=== PATIENT | male | born 1965 | race Caucasian/White ===

== ENCOUNTER 2020-08-03 08:04 | Observation (INO) | payer BC ==
[~2020-08-03] VITALS: Ht 177.8 cm; Wt 77.0 kg
[2020-08-03] VITALS (352 sets, daily range): BP systolic 103–177; BP diastolic 72–90; PULSE 75–98; TEMP 97.4–98.6; O2SAT 93–100
[2020-08-03] MEDS ORDERED: CENTRUM MEN'S PO (08:26)
[2020-08-03] MEDS ORDERED: PLAVIX 75MG TAB75 MG PO (08:27)
[2020-08-03] MEDS ORDERED: DOLOPHINE HCL5 MG PO (08:28)
[2020-08-03] MEDS ORDERED: CYMBALTA 30MG30 MG PO (08:29)
[2020-08-03] MEDS ORDERED: PROTONIX 40MG T40 MG PO (08:29)
[2020-08-03] MEDS ORDERED: ASPIRIN E.C. 8181 MG PO (08:30)
[2020-08-03] MEDS ORDERED: LOPRESSOR 225 MG/TAB PO (08:30)
[2020-08-03 09:15] LABS: HEMATOCRIT 39.5 % (42.0-52.0); HEMOGLOBIN 14.2 g/dl (13.5-18.0); MEAN CELL VOLUME 89 fl (80.0-100.0); MEAN CORPUSCULAR HEMOGLOBIN 32 pg (27.0-31.0); MEAN CORPUSCULAR HGB CONC 36 g/dl (33.0-37.0); MEAN PLATELET VOLUME 8.6 fl (7.4-10.4); PLATELET COUNT 214 K/mm3 (130-400); RED BLOOD COUNT 4.46 M/mm3 (4.20-5.60); REDCELL DISTRIBUTION WIDTH-CV 12.8 % (11.5-14.5)
[2020-08-03 09:19] LABS: INR 1.1 (0.8-3.0); PROTHROMBIN TIME 12.7 SECONDS (9.7-12.8)
[2020-08-03 09:22] LABS: PARTIAL THROMBOPLASTIN TIME 27.3 SECONDS (26.0-37.0)
[2020-08-03 09:25] LABS: CALCIUM 9.4 mg/dL (8.4-10.2); CREATININE, serum 0.6 (0.66-1.25); POTASSIUM 4.2 mmol/L (3.4-5.0)
--- NOTE | 2020-08-03 12:00 | NUR ---
Report reveived from RENETTA Gale.
--- NOTE | 2020-08-03 12:20 | NUR ---
Arrived to the unit via stretcher. Patient alert and oriented. Denies any shortness of breath or chest pain. Radial site clean, dry and intact with scant bloody drainage. Call light left within reach. Will continue to monitor.
[2020-08-03] MEDS ORDERED: NOVOLOG 100U100 U/M1 (12:35)
[2020-08-03] MEDS ORDERED: LEVEMIR100 U/ML SQ (12:35)
[2020-08-03] MEDS ORDERED: NOVOLOG 100U100 U/M1 SQ (12:37)
--- NOTE | 2020-08-03 16:30 | NUR ---
Received telephone orders to re-start home Levemir dose and sliding scale novolog. Patient also reporting 8/10 back pain. Pain is chronic in nature. Patient reports that tylenol, norco and oxycodone do not help and "upset" his stomach. Received one time order for IV fentanyl.
--- NOTE | 2020-08-03 19:21 | NUR ---
Report given to RENETTA Palomino. Patient care transfered.
--- NOTE | 2020-08-03 20:09 | NUR ---
Right forearm from elbow distally tender upon palpation, this is unchanged per pt since end of procedure
[2020-08-04] VITALS (314 sets, daily range): BP systolic 122–166; BP diastolic 74–115; PULSE 78–94; TEMP 97.9–98.4; O2SAT 94–100
[2020-08-04 05:31] LABS: BASO % 0.5 % (0.0-2.0); EOS # 0.1 (0.0-0.7); EOS % 0.9 % (0-4.0); GRAN # 5.6 (1.4-6.5); GRAN % 69.8 % (42.2-75.2); HEMATOCRIT 37.2 % (42.0-52.0); HEMOGLOBIN 13.6 g/dl (13.5-18.0); LYMPH # 1.6 (1.2-3.4); LYMPH % 19.5 % (20.0-51.0); MEAN CELL VOLUME 88 fl (80.0-100.0); MEAN CORPUSCULAR HEMOGLOBIN 32 pg (27.0-31.0); MEAN CORPUSCULAR HGB CONC 37 g/dl (33.0-37.0); MEAN PLATELET VOLUME 8.8 fl (7.4-10.4); MONO # 0.7 (0.1-0.6); MONO % 8.9 % (1.7-9.3); PLATELET COUNT 207 K/mm3 (130-400); RED BLOOD COUNT 4.25 M/mm3 (4.20-5.60); REDCELL DISTRIBUTION WIDTH-CV 12.6 % (11.5-14.5)
[2020-08-04 05:43] LABS: CALCIUM 8.9 mg/dL (8.4-10.2); CREATININE, serum 0.63 (0.66-1.25)
--- NOTE | 2020-08-04 08:46 | NUR ---
This am during bedside report patient stated, "I do not feel right, I bet my blood sugar is 400". PT blood sugar was about 227, novolog given based on sliding scale. AT this time patient's heart rate quickly fluctuates between 80s-100s appears to still be sinus rhythm. PTs blood pressure is a little elevated but decreases with next check. PT is given morning medications, breakfast arrives, this rn hands patient his call light and patient begins to eat. 0800- PT calls stating he is sweaty and feels like he may throw up. PT has 125cc emesis. Whole pills are noted in emesis. PT continues to dry heave. Zofran given as ordered. Dr. Bernard notified.
--- NOTE | 2020-08-04 11:56 | NUR ---
First visit from the nutrition worker. No needs right now.
--- NOTE | 2020-08-04 16:06 | NUR ---
PT TRANSFERRED UP STAIRS VIA WHEELCHAIR TO ROOM 351. Jamila RN to assume care at this time.
--- NOTE | 2020-08-04 18:16 | NUR ---
Patient currently resting in bed. Patient is alert and oriented, denies pain. Patient did eat dinner, reports he is feeling a small amount of nausea, no emesis as of yet. Administered PRN antiemetic per patient request. Patient denies further needs, call light within reach.
[2020-08-05 00:15] VITALS: BP 123/70; PULSE 87; TEMP 98
[2020-08-05 01:06] VITALS: BP 123/70; PULSE 87; TEMP 98
[2020-08-05 04:07] VITALS: BP 116/70; PULSE 86; TEMP 97.9
[2020-08-05 04:14] VITALS: BP 116/70; PULSE 86; TEMP 97.9
--- NOTE | 2020-08-05 04:26 | NUR ---
PATIENT CALM AND COOPERATIVE THROUGHOUT THE NIGHT. PATIENT HAS BEEN RESTING QUIETLY IN BED THROUGHOUT THIS SHIFT. DENIES NAUSEA AND STATES HE IS FEELING GOOD AND READY TO GO HOME. NO NEW ISSUES NOTED BY THIS NURSE OR REPORTED BY PATIENT.
[2020-08-05 07:27] VITALS: BP 130/74; PULSE 96; TEMP 97.7
[2020-08-05 11:46] VITALS: BP 134/76; PULSE 73; TEMP 97.7
--- NOTE | 2020-08-05 12:53 | NUR ---
First visit from the police guard. No needs right now.
[2020-08-05] MEDS ORDERED: LIPITOR 80MG80 MG PO (12:57)
[2020-08-05] MEDS ORDERED: BRILINTA90 MG PO (12:57)
--- NOTE | 2020-08-05 13:45 | NUR ---
Patient is discharging home. Discharge instructions discussed with patient. No questions verbalized. INT discontinued. Explained when follow up appointment is. Discussed using the coupon provided to get his medications filled at the pharmacy. 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 All belongings packed up and sent with patient. Copies of discharge instructions sent with patient. Patient walked out with nurse at this time.
== END 2020-08-05 13:45 | disposition home or self-care (01) ==
LOC: COL.CAR 08:04 → ICU 12:30 → COL.CAR 08-04 14:58 → ICU 08-04 14:59 → MEDICAL 08-04 16:17
PROVIDERS: ADMIT Internal Medicine Cardiovascular Disease
DX: I25.10 Atherosclerotic heart disease of native coronary artery without angina pectoris (principal); I25.2 Old myocardial infarction; E11.9 Type 2 diabetes mellitus without complications; Z79.4 Long term (current) use of insulin; Z79.82 Long term (current) use of aspirin; Z79.02 Long term (current) use of antithrombotics/antiplatelets
CPT/HCPCS: OP; C1725; C1769; C1874; C1887; C9600; G0378; J0583; J0780; J1644; J1650; J1815; J2250; J2405; J3010; Q9967

== ENCOUNTER 2020-10-17 17:04 | Emergency (ER) | payer BC ==
[~2020-10-17] VITALS: Ht 177.8 cm; Wt 79.5 kg
[~2020-10-17 17:04] MED LIST: ASPIRIN E.C. 8181 MG PO; BRILINTA90 MG PO; CENTRUM MEN'S PO; CYMBALTA 30MG30 MG PO; DOLOPHINE HCL5 MG PO; LEVEMIR100 U/ML SQ; LIPITOR 80MG80 MG PO; LOPRESSOR 225 MG/TAB PO; NOVOLOG 100U100 U/M1; NOVOLOG 100U100 U/M1 SQ; PLAVIX 75MG TAB75 MG PO; PROTONIX 40MG T40 MG PO
[2020-10-17 17:29] LABS: BASO % 0.2 % (0.0-2.0); GRAN # 10.8 (1.4-6.5); GRAN % 83.1 % (42.2-75.2); HEMATOCRIT 43.7 % (42.0-52.0); LYMPH # 1.1 (1.2-3.4); LYMPH % 8.6 % (20.0-51.0); MEAN CELL VOLUME 89 fl (80.0-100.0); MEAN CORPUSCULAR HEMOGLOBIN 33 pg (27.0-31.0); MEAN CORPUSCULAR HGB CONC 37 g/dl (33.0-37.0); MEAN PLATELET VOLUME 9.2 fl (7.4-10.4); MONO % 7.7 % (1.7-9.3); PLATELET COUNT 291 K/mm3 (130-400); RED BLOOD COUNT 4.92 M/mm3 (4.20-5.60); REDCELL DISTRIBUTION WIDTH-CV 12.5 % (11.5-14.5)
[2020-10-17 17:40] LABS: BILIRUBIN,TOTAL 2.1 mg/dL (0.0-1.0); CREATININE, serum 0.55 (0.66-1.25); POTASSIUM 3.7 mmol/L (3.4-5.0); TOTAL PROTEIN 8.6 gm/dL (6.4-8.2)
[2020-10-17 18:11] LABS: TROPONIN-I 11.6 ng/mL (0.000-0.035)
[2020-10-17 18:28] LABS: TSH w REFLEX 1.09 uIU/mL (0.465-4.680)
[2020-10-17 19:15] VITALS: BP 121/72; PULSE 102; TEMP 98.8
== END 2020-10-17 19:15 | disposition short-term general hospital (02) ==
LOC: COL.ER 17:04
PROVIDERS: Emergency Medicine
DX: I21.4 Non-ST elevation (NSTEMI) myocardial infarction (principal); E10.9 Type 1 diabetes mellitus without complications; I25.10 Atherosclerotic heart disease of native coronary artery without angina pectoris; E78.5 Hyperlipidemia, unspecified; G89.29 Other chronic pain; M54.9 Dorsalgia, unspecified; Z20.822 Contact with and (suspected) exposure to COVID-19; Z95.5 Presence of coronary angioplasty implant and graft; Z79.02 Long term (current) use of antithrombotics/antiplatelets; Z79.899 Other long term (current) drug therapy; Z79.4 Long term (current) use of insulin; Z79.82 Long term (current) use of aspirin
CPT/HCPCS: J1644; J2270; Q9967

== ENCOUNTER 2020-10-21 22:31 | Emergency (ER) | payer BC ==
[~2020-10-21] VITALS: Ht 175.3 cm; Wt 77.3 kg
[2020-10-21 22:36] VITALS: TEMP 98.8
[2020-10-21 22:56] LABS: BASO % 0.3 % (0.0-2.0); EOS % 0.1 % (0-4.0); GRAN # 8.1 (1.4-6.5); GRAN % 82.7 % (42.2-75.2); HEMOGLOBIN 12.5 g/dl (13.5-18.0); LYMPH # 0.9 (1.2-3.4); LYMPH % 9.3 % (20.0-51.0); MEAN CELL VOLUME 90 fl (80.0-100.0); MEAN CORPUSCULAR HEMOGLOBIN 33 pg (27.0-31.0); MEAN CORPUSCULAR HGB CONC 36 g/dl (33.0-37.0); MEAN PLATELET VOLUME 9.2 fl (7.4-10.4); MONO # 0.7 (0.1-0.6); MONO % 7.2 % (1.7-9.3); PLATELET COUNT 252 K/mm3 (130-400); RED BLOOD COUNT 3.81 M/mm3 (4.20-5.60); REDCELL DISTRIBUTION WIDTH-CV 12.2 % (11.5-14.5)
[2020-10-21 22:59] LABS: HEMATOCRIT 34.4 % (42.0-52.0)
[2020-10-21 23:07] LABS: ALBUMIN 4.1 gm/dL (3.5-5.0); BILIRUBIN,TOTAL 1.5 mg/dL (0.0-1.0); CALCIUM 9.4 mg/dL (8.4-10.2); CREATININE, serum 0.55 (0.66-1.25); POTASSIUM 3.6 mmol/L (3.4-5.0); TOTAL PROTEIN 7.3 gm/dL (6.4-8.2)
[2020-10-21 23:23] LABS: TROPONIN-I 3.05 ng/mL (0.000-0.035)
[2020-10-21] MEDS ORDERED: TOPROL XL 50MG50 MG PO (23:52)
[2020-10-21] MEDS ORDERED: COLACE 100100 MG/CAP PO (23:57)
[2020-10-22 01:49] VITALS: BP 123/69; PULSE 99
== END 2020-10-22 01:49 | disposition short-term general hospital (02) ==
LOC: COL.ER 22:31
PROVIDERS: Emergency Medicine
DX: R07.9 Chest pain, unspecified (principal); R11.2 Nausea with vomiting, unspecified; I25.10 Atherosclerotic heart disease of native coronary artery without angina pectoris; I25.2 Old myocardial infarction; Z98.61 Coronary angioplasty status; E78.5 Hyperlipidemia, unspecified; E10.9 Type 1 diabetes mellitus without complications; G89.29 Other chronic pain; M54.9 Dorsalgia, unspecified; Z79.82 Long term (current) use of aspirin; Z79.899 Other long term (current) drug therapy
CPT/HCPCS: J1644; J1815; J2270; J2405; J7030

== ENCOUNTER 2023-11-08 09:38 | Emergency (ER) | payer BC ==
[~2023-11-08] VITALS: Ht 177.8 cm; Wt 77.3 kg
[~2023-11-08 09:38] MED LIST changes: +COLACE 100100 MG/CAP PO; +TOPROL XL 50MG50 MG PO
[2023-11-08 09:50] VITALS: TEMP 97.6
[2023-11-08 10:45] LABS: BASO # 0.1 K/mm3 (0.0-0.2); BASO % 0.9 % (0.0-2.0); EOS # 0.1 K/mm3 (0.0-0.7); EOS % 0.7 % (0.0-4.0); GRAN # 4.3 K/mm3 (1.4-6.5); GRAN % 52.1 % (42.2-75.2); HEMATOCRIT 43.6 % (42.0-52.0); HEMOGLOBIN 14.7 g/dl (13.5-18.0); LYMPH # 3.2 K/mm3 (1.2-3.4); LYMPH % 39.5 % (20.0-51.0); MEAN CELL VOLUME 91 fl (80.0-100.0); MEAN CORPUSCULAR HEMOGLOBIN 31 pg (27-31); MEAN CORPUSCULAR HGB CONC 34 g/dl (33.0-37.0); MEAN PLATELET VOLUME 9.3 fl (7.4-10.4); MONO # 0.5 K/mm3 (0.1-0.6); MONO % 6.4 % (1.7-9.3); PLATELET COUNT 223 K/mm3 (130-400); RED BLOOD COUNT 4.79 M/mm3 (4.20-5.60); REDCELL DISTRIBUTION WIDTH-CV 13.8 % (11.5-14.5)
[2023-11-08 10:50] LABS: INR 1.2 (0.8-3.0); PROTHROMBIN TIME 13.2 SECONDS (9.7-12.8)
[2023-11-08 11:13] LABS: ALBUMIN 3.7 g/dL (3.5-5.0); C-REACTIVE PROTEIN 0.11 mg/dL (0.00-0.50); CALCIUM 10.4 mg/dL (8.4-10.2); CREATININE, serum 1.07 mg/dL (0.72-1.25); POTASSIUM 4.4 mEq/L (3.5-4.5); TOTAL PROTEIN 7.4 g/dl (6.2-8.1)
[2023-11-08 11:22] LABS: TROPONIN-I 0.027 ng/mL (0.00-0.033)
[2023-11-08 12:54] VITALS: BP 101/65; PULSE 60
== END 2023-11-08 13:01 | disposition home or self-care (01) ==
LOC: COL.ER 09:38
PROVIDERS: Emergency Medicine
DX: R07.9 Chest pain, unspecified (principal); Z95.1 Presence of aortocoronary bypass graft; Z95.5 Presence of coronary angioplasty implant and graft; Z79.02 Long term (current) use of antithrombotics/antiplatelets

== ENCOUNTER 2024-01-31 09:02 | Day surgery (SDC) | payer BC ==
[~2024-01-31] VITALS: Ht 177.8 cm; Wt 77.0 kg
[2024-01-31] VITALS (20 sets, daily range): BP systolic 98–175; BP diastolic 45–116; PULSE 34–83; TEMP 97.7–98.5
[~2024-01-31 09:02] MED LIST changes: +TOPROL XL 25MG25 MG PO; -TOPROL XL 50MG50 MG PO
[2024-01-31] MEDS ORDERED: 1/2 NS 1,000 ML IV SCH ×2 (09:15→12:30)
[2024-01-31 09:55] LABS: HEMATOCRIT 39.4 % (42.0-52.0); HEMOGLOBIN 13.8 g/dl (13.5-18.0); MEAN CELL VOLUME 93 fl (80.0-100.0); MEAN CORPUSCULAR HEMOGLOBIN 33 pg (27-31); MEAN CORPUSCULAR HGB CONC 35 g/dl (33.0-37.0); MEAN PLATELET VOLUME 9.6 fl (7.4-10.4); PLATELET COUNT 194 K/mm3 (130-400); RED BLOOD COUNT 4.24 M/mm3 (4.20-5.60); REDCELL DISTRIBUTION WIDTH-CV 13.1 % (11.5-14.5)
[2024-01-31] MEDS ORDERED: SYNTHROID0.05 MG/TA PO (10:02)
[2024-01-31] MEDS ORDERED: MS CONTIN 330 MG/TAB PO (10:03)
[2024-01-31 10:04] LABS: INR 1.2 (0.8-3.0); PROTHROMBIN TIME 13.3 SECONDS (9.7-12.8)
[2024-01-31] MEDS ORDERED: PACERONE200 MG PO (10:04)
[2024-01-31] MEDS ORDERED: LASIX 20MG TABL20 MG PO (10:05)
[2024-01-31 10:06] LABS: PARTIAL THROMBOPLASTIN TIME 29.7 SECONDS (26.0-37.0)
[2024-01-31] MEDS ORDERED: BUMEX0.5 MG PO (10:06)
[2024-01-31] MEDS ORDERED: BUMEX 1MG TA1 MG/TA1 PO (10:07)
[2024-01-31] MEDS ORDERED: LIPITOR 40MG TA40 MG PO (10:08)
[2024-01-31 10:12] LABS: CREATININE, serum 1.13 mg/dL (0.72-1.25); POTASSIUM 4.1 mEq/L (3.5-4.5)
--- NOTE | 2024-01-31 10:50 | NUR ---
SEE MERGE FOR PROCEDURE DOCUMENTATION
[2024-01-31] MEDS ORDERED: Bivalirudin 250 MG in NS 50 ML IV SCH (11:25)
[2024-01-31] MEDS ORDERED: Iohexol 350 - 100 ML VIAL INCOR ONE (11:47)
[2024-01-31] MEDS ORDERED: fentaNYL 50 MCG/ML 2 ML VIAL IV SCH (11:48)
[2024-01-31] MEDS ORDERED: Midazolam 2 MG/2 ML VIAL IV SCH (11:49)
[2024-01-31] MEDS ORDERED: Amiodarone 200 MG TAB PO SCH (12:08)
[2024-01-31] MEDS ORDERED: Insulin Lispro (HumaLOG) SQ SCH (12:12)
[2024-01-31] MEDS ORDERED: Nitroglycerin 0.4 MG/HR DAILY PATCH TD SCH (12:13)
[2024-01-31] MEDS ORDERED: Bisacodyl 5 MG TAB PO PRN (12:15)
[2024-01-31] MEDS ORDERED: Magnes Hydrox (MOM) 80 MG/ML 30 ML CUP PO PRN (12:30)
[2024-01-31] MEDS ORDERED: Dextrose (Glucose) 15 GM (4 x 3.75 GM) Chewable TABLET PACK PO PRN (12:30)
[2024-01-31] MEDS ORDERED: Glucagon 1 MG VIAL IM PRN (12:30)
[2024-01-31] MEDS ORDERED: Dextrose 50% Water 25 GM/50 ML SYRINGE IV PRN (12:30)
[2024-01-31] MEDS ORDERED: Ondansetron 4 MG/2 ML VIAL IV PRN (12:30)
[2024-01-31] MEDS ORDERED: Acetaminophen 325 MG TAB PO PRN (12:30)
--- NOTE | 2024-01-31 12:32 | NUR ---
Patient arrived to the medical unit 307, alert and oriented x 4, VSS. Denies any pain or discomfort. He would like to eat. Lunch ordered. Puncture site CDI. Post op VS statrted. Getting the rest of angiomax gtt and fluids per orders.
--- NOTE | 2024-01-31 18:13 | NUR ---
Patient has been resting in bed, eating, no complains of pain. Getting fluids per orders. Some drainage in site. Report will be given to night RN.
--- NOTE | 2024-01-31 20:18 | NUR ---
PATIENT IS RESTING IN BED WATCHING TV. DENIES PAIN IN FEMORAL SITE, DRESSING INTACT WITH SOME BLOOD ON GAUZE. STABLE ON ROOM AIR. CALL LIGHT WITHIN REACH. BED IS LOCKED AND IN LOW POSITION
[2024-01-31] MEDS ORDERED: DULoxetine 30 MG CAP PO SCH (21:00)
[2024-01-31] MEDS ORDERED: Atorvastatin 40 MG TAB PO SCH (21:00)
[2024-01-31] MEDS ORDERED: Bumetanide 1 MG TAB PO SCH (21:00)
[2024-01-31] MEDS ORDERED: Melatonin 3 MG TAB PO PRN (21:00)
[2024-02-01] VITALS (7 sets, daily range): BP systolic 106–136; BP diastolic 54–76; PULSE 60–68; TEMP 97.9–98.4
[2024-02-01 07:14] LABS: CALCIUM 8.7 mg/dL (8.4-10.2); CREATININE, serum 1.03 mg/dL (0.72-1.25)
[2024-02-01 07:43] LABS: BASO # 0.1 K/mm3 (0.0-0.2); BASO % 0.5 % (0.0-2.0); EOS # 0.1 K/mm3 (0.0-0.7); EOS % 0.6 % (0.0-4.0); GRAN # 6.6 K/mm3 (1.4-6.5); GRAN % 70.2 % (42.2-75.2); HEMATOCRIT 37.5 % (42.0-52.0); LYMPH # 2.1 K/mm3 (1.2-3.4); LYMPH % 22.5 % (20.0-51.0); MEAN CELL VOLUME 93 fl (80.0-100.0); MEAN CORPUSCULAR HEMOGLOBIN 32 pg (27-31); MEAN CORPUSCULAR HGB CONC 35 g/dl (33.0-37.0); MONO # 0.6 K/mm3 (0.1-0.6); MONO % 5.9 % (1.7-9.3); PLATELET COUNT 164 K/mm3 (130-400); RED BLOOD COUNT 4.05 M/mm3 (4.20-5.60)
--- NOTE | 2024-02-01 07:56 | NUR ---
Patient resting in bed, request his insulin, provided. Asked how many units, explained. States he feels he needs more since his glucose monitor is showing his blood glucose more than 300.
--- NOTE | 2024-02-01 08:15 | NUR ---
Call placed to fish liver sorter, Farhana Stubbs, to verify insuling sliding scale. Stated will check with Dr. Ireland or Joana to adjust.
[2024-02-01] MEDS ORDERED: Insulin Lispro (HumaLOG) SQ ONE (08:45)
[2024-02-01] MEDS ORDERED: Clopidogrel 75 MG TAB PO SCH (09:00)
[2024-02-01] MEDS ORDERED: Furosemide 20 MG TAB PO SCH (09:00)
--- NOTE | 2024-02-01 09:17 | NUR ---
SW met with patient to complete initial assessment for discharge planning. Patient verfied that he lives alone in [facility], sees Dr. Sreedhar Clarke as his PCP and uses [facility] pharmacy. Patient lists his daughter Kita Payan ([phone]) as his contact and DPOA. Patient states his only DME is a shower chair and grab bars. Patient states his friend Alli Barnett will drive him home today. Discharge plan: Home
--- NOTE | 2024-02-01 10:10 | NUR ---
Initial visit; Patient thanked Box Maker for looking in on him and states he is doing well. Box Maker offered God's blessings and wished him well.
--- NOTE | 2024-02-01 12:01 | NUR ---
Staff reviewed risk factors for heart disease. Covered applicable modifiable risk factors including the following: tobacco cessation, HTN, hyperlipidemia, diabetes, overweight/obesity, sedentary lifestyle, and stress/depression. Patient verbalized understanding. Patient states he has completed cardiac rehab in the past several times and would like to defer his referral being sent to [facility] in [place], [place]. Cardiac rehab department number given for both [place] and [place] in case patient has questions or changes his mind.
[2024-02-01] MEDS ORDERED: NITRO-DUR0.4 MG/PAT TD (13:25)
--- NOTE | 2024-02-01 14:54 | NUR ---
Patient was provided with discharge information, all questions answered. IV access and telemetry were discontinued.
== END 2024-02-01 15:10 | disposition home or self-care (01) ==
LOC: COL.CAR 09:02 → MEDICAL 12:15 → COL.CAR 02-01 15:10
PROVIDERS: Internal Medicine Cardiovascular Disease
DX: I25.10 Atherosclerotic heart disease of native coronary artery without angina pectoris (principal); Z95.810 Presence of automatic (implantable) cardiac defibrillator; Z95.1 Presence of aortocoronary bypass graft
CPT/HCPCS: OP; C1725; C1760; C1769; C1887; C1894; J0583; J1644; J1815; J2250; J3010; Q9967